=== PATIENT | male | born 1955 | race Caucasian/White ===

== ENCOUNTER 2019-09-27 20:36 | Emergency (ER) | payer MEDICARE, OTHER ==
[~2019-09-27] VITALS: Ht 167.6 cm; Wt 68.2 kg
[~2019-09-27 20:36] MED LIST: CARB1TAB20 PO; MULT1TAB70 PO; VIT1TABL83 PO
[2019-09-27] MEDS ORDERED: LIDOCAINE 5% TRANSDERMAL PATCH TD ONE (22:30)
[2019-09-27] MEDS ORDERED: DEXAMETHASONE SOD PHOS 4 MG/ML 5 ML VIAL IM ONE (22:30)
[2019-09-27] MEDS ORDERED: DIAZEPAM 5 MG TABLET PO ONE (22:30)
[2019-09-27] MEDS ORDERED: KETOROLAC TROMETHAMINE 30 MG/ML VIAL IM ONE (22:30)
[2019-09-27] MEDS ORDERED: ACETAMINOPHEN 500 MG TABLET PO ONE (22:30)
[2019-09-28 01:11] VITALS: BP 136/72
== END 2019-09-28 01:40 | disposition home or self-care (01) ==
LOC: EMS 20:37
DX: M51.36 Other intervertebral disc degeneration, lumbar region (principal); M54.41 Lumbago with sciatica, right side; F15.90 Other stimulant use, unspecified, uncomplicated
CPT/HCPCS: 72110; 96372; 99284; J1100; J1885